=== PATIENT | female | born 1990 | race Caucasian/White ===

== ENCOUNTER 2024-03-19 13:02 | Outpatient (AMB) | payer OTHER, SELFPAY ==
--- OUTSIDE RECORDS SUMMARY | 2024-03-19 13:04 | XMS_ITS ---
Author Name [facility] Organization Unknown Results Test Name/Text Value Interpretation Date Range Source Chloride SerPl-sCnc 102mmol/L Normal [id number] 98 - 10 7 [facility] Glucose SerPl-mCnc 114mg/dL Above high normal [id number] 65 - 99 [facility] GFR/BSA.pred SerPlBld FRY-YNI-PmJBgv 90 Normal 59 - [facility] Creat SerPl-mCnc 0.6mg/dL Normal 0.4 - 1.1 [facility] BUN/Creat SerPl 15Ratio Normal [id number] 10 - 25 [facility] Anion Gap Bld-sCnc 9 Normal [id number] 7 - 17 [facility] Calcium SerPl-mCnc 8.8mg/dL Normal [id number] 8.7 - 10 .5 [facility] CO2 SerPl-sCnc 24mmol/L Normal [id number] 22 - 33 [facility] BUN SerPl-mCnc 9mg/dL Normal 8 - 21 [facility] Sodium SerPl-sCnc 135mmol/L Below low normal [id number] 13 6 - 145 [facility] Potassium SerPl-sCnc 3.7mmol/L Normal [id number] 3.4 - 5.3 [facility] Imm Granulocytes/leuk NFr Bld Auto 0.5% Normal [id number] [facility] Lymphocytes/leuk NFr Bld Auto 9.4% Normal [id number] [facility] PMV Bld Auto 10.1fL Normal [id number] 7.5 - 12.[address] Monocytes num Bld Auto 0.58Thou/uL Normal [id number] 0. 2 - 1.5 [facility] Hct VFr Bld Auto 36.3% Normal [id number] 35 - 47 [facility] Neutrophils num Bld Auto 11.86Thou/uL Above high normal [id number] 2 - 7.5 [facility] Neutrophils/leuk NFr Bld Auto 85.3% Normal [id number] [facility] Basophils/leuk NFr Bld Auto 0.4% Normal [id number] [facility] Basophils num Bld Auto 0.05Thou/uL Normal [id number] 0 - 0.2 [facility] Monocytes/leuk NFr Bld Auto 4.2% Normal [id number] [facility] Eosinophil num Bld Auto 0.03Thou/uL Normal [id number] 0 - 0.7 [facility] MCH RBC Qn Auto 29.6pg Normal [id number] 26 - 34 [facility] Eosinophil/leuk NFr Bld Auto 0.2% Normal [id number] [facility] Imm Granulocytes num Bld Auto 0.07Thou/uL Normal [id number] 0 - 0.1 [facility] RDW RBC Auto-Rto 12.3% Normal [id number] 11.5 - 14. 5 [facility] Platelet num Bld Auto 350Thou/uL Normal [id number] 150 - 450 [facility] MCHC RBC Auto-mCnc 33.3g/dL Normal [id number] 30 - 36 [facility] MCV RBC Auto 89fL Normal [id number] 80 - 100 [facility] T WBC num Bld Auto 13.9Thou/uL Above high normal [id number] 4 - 11 [facility] RBC num Bld Auto 4.09Mil/uL Normal [id number] 4 - 5.4 [facility] Hgb Bld-mCnc 12.1g/dL Normal [id number] 11.7 - 15.7 [facility] CCT Lymphocytes num Bld Auto 1.3Thou/uL Below low normal [id number] 1.5 - 4.5 [facility]
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
[2024-03-19 13:17] VITALS: BP 112/60; PULSE 86; O2SAT 95; BMI 26.0
== END 2024-03-19 15:51 | disposition home or self-care (01) ==
PROVIDERS: PCP Internal Medicine; Visit Provider Internal Medicine
DX: Z00.01 Encounter for general adult medical examination with abnormal findings (principal); K52.9 Noninfective gastroenteritis and colitis, unspecified

== ENCOUNTER → 2024-03-19 13:02 | Outpatient (BNVA) | payer OTHER, SELFPAY | PROVIDERS: PCP Internal Medicine; Visit Provider Internal Medicine | DX: Z00.01 Encounter for general adult medical examination with abnormal findings (principal); K52.9 Noninfective gastroenteritis and colitis, unspecified | CPT/HCPCS: 96127 ==